=== PATIENT | female | born 1995 | race Caucasian/White ===

== ENCOUNTER 2016-03-19 12:37 | Emergency (ER) | payer OTHER ==
[2016-03-19 12:47] VITALS: TEMP 98.3; BMI 30.1
[2016-03-19] MEDS ORDERED: SODIUM CHLORIDE 1,000 ML IV ONE (13:08)
[2016-03-19] MEDS ORDERED: diazePAM CARPU-JECT 10 MG/2 ML DISP.SYRIN IVPUSH ONE (13:09)
[2016-03-19] MEDS ORDERED: METOCLOPRAMIDE HCL INJECTION 10 MG/2 ML VIAL IVPB ONE (13:09)
[2016-03-19] MEDS ORDERED: MECLIZINE HCL 25 MG TABLET (FP) PO ONE (13:10)
--- NOTE | 2016-03-19 13:15 | PDOC ---
History of Present Illness - General History Source: Patient Exam Limitations: No Limitations - History of Present Illness Initial Comments: 03/19/16 13:19 The patient is a 20 year old female, with no significant past medical history, who presents to the emergency department with chest pain, palpitations, shortness of breath, headache, dizziness and nausea while working today. She notes that when her symptoms were onset, her body became numb diffusely, but has since resolved. She describes her headache as a pressure sensation, ranging from mild to moderate, without radiation. She notes that her headache is exacerbated when she lifts her head up and tries to focus her vision. She denies taking control or driving for long distances. The patient denies fever, chills, nausea, vomit, diarrhea and constipation. Denies dysuria, frequency, urgency and hematuria. Allergies: None Past surgical history: None reported Social history: No alcohol, tobacco or drug use reported <Reynaldo Arnett - Last Filed: 03/19/16 15:03> <Deric Daugherty - Last Filed: 03/19/16 16:08> - General Chief Complaint: Palpitations Stated Complaint: CHEST PAIN, RAPID HEARTBEAT,DIZZINESS Time Seen by Provider: 03/19/16 12:58 Past History <Reynaldo Arnett - Last Filed: 03/19/16 15:03> - Surgical History Cholecystectomy: Yes - Psycho/Social/Smoking Cessation Hx Anxiety: No Suicidal Ideation: No Smoking History: Never smoked Have you smoked in the past 12 months: No Hx Alcohol Use: No Drug/Substance Use Hx: No Substance Use Type: None <Deric Daugherty - Last Filed: 03/19/16 16:08> - Past Medical History Allergies/Adverse Reactions: Allergies Allergy/AdvReac Type Severity Reaction Status Date / Time No Known Allergies Allergy Verified 03/19/16 12:42 Home Medications: Ambulatory Orders Meclizine HCl [Antivert -] 50 mg PO TID PRN #20 tablet 03/19/16 Review of Systems - Review of Systems Able to Perform ROS?: Yes <Reynaldo Arnett - Last Filed: 03/19/16 15:03> - Review of Systems Constitutional: No: Chills, Fever HEENTM: No: Recent change in vision, Nose Congestion Respiratory: No: Cough, Shortness of Breath Cardiac (ROS): Yes: Chest Pain, Lightheadedness, Palpitations. No: Edema ABD/GI: No: Nausea, Vomiting Neurological: Yes: Headache. No: Weakness, Ataxia All Other Systems: Reviewed and Negative <Deric Daugherty - Last Filed: 03/19/16 16:08> *Physical Exam - Vital Signs Last Vital Signs Temp Pulse Resp BP Pulse Ox 98.3 F 72 20 136/81 97 03/19/16 12:42 03/19/16 12:42 03/19/16 12:42 03/19/16 12:42 03/19/16 12:42 - Physical Exam Comments: 03/19/16 13:20 GENERAL: The patient is awake, alert, and fully oriented, Mild distress secondary to headache and dizziness. HEAD: Normal with no signs of trauma. EYES: Pupils equal, round and reactive to light, extraocular movements intact, sclera anicteric, conjunctiva clear with no pallor. ENT: Ears normal, nares patent, oropharynx clear without exudates. Moist mucous membranes. NECK: Normal range of motion, supple without lymphadenopathy, JVD, or masses. LUNGS: Breath sounds equal, clear to auscultation bilaterally. No wheeze/ crackles. HEART: Regular rate and rhythm, normal S1 and S2 without murmur or rub. ABDOMEN: Soft/nontender/nondistended. BS wnl. No guarding or rebound. No palpable masses. No hepatosplenomegaly. EXTREMITIES: Normal range of motion, no edema. No clubbing or cyanosis. No cords , erythema, or tenderness. NEUROLOGICAL: Cranial nerves II through XII grossly intact. Normal speech, normal gait. PSYCH: Normal mood, normal affect. SKIN: Warm, Dry, normal turgor, no rashes or lesions noted. <Reynaldo Arnett - Last Filed: 03/19/16 15:03> - Vital Signs Last Vital Signs Temp Pulse Resp BP Pulse Ox 98.3 F 72 20 136/81 97 03/19/16 12:42 03/19/16 12:42 03/19/16 12:42 03/19/16 12:42 03/19/16 12:42 <Deric Daugherty - Last Filed: 03/19/16 16:08> Heart Score/ECG Review #1 ECG reviewed & interpreted by me at: 12:44 General ECG Interpretation: Sinus Rhythm, Normal Rate (69), Normal Intervals ( qtc 430), No acute ischemic changes <Deric Daugherty - Last Filed: 03/19/16 16:08> ED Treatment Course - LABORATORY CBC & Chemistry Diagram: 03/19/16 13:11 03/19/16 13:11 - RADIOLOGY Radiograph Interpretation: 03/19/16 15:[address] Reviewed by: Dr. Karthik Chacko Impression: No evidence of acute intracranial hemorrhage, edema, midline shift, mass effect, or skull fracture. No CT evidence of acute territorial infarction. <Reynaldo Arnett - Last Filed: 03/19/16 15:03> - LABORATORY CBC & Chemistry Diagram: 03/19/16 13:11 03/19/16 13:11 <Deric Daugherty - Last Filed: 03/19/16 16:08> Medical Decision Making - Medical Decision Making 03/19/16 13:11 A portion of this note was documented by scribe services under my direction. I have reviewed the details of the note, within reason, and agree with the documentation with the following case summary and management plan written by me. 20-year-old healthy female presents brought in by sister with acute onset of constellation of symptoms while at work: Lightheadedness/dizziness with palpitations and chest discomfort, full body numbness, and now a persistent frontal headache. No obvious stressors, no risk factors for ACS or PE, denies drug use. No history of recurrent migraines or ever experiencing this set of symptoms. Vital signs normal. EKG is nonischemic and normal rate Exam is normal, including neurological exam 20-year-old female with sudden onset of palpitations/chest pain/lightheadedness , now resolved but followed by headache. Rule out primary [employer] for ACS process, though clinically atypical. Question panic attack//anxiety. Labs, EKG Chest x-ray, CT head IV fluids, Reglan, valium/meclizine for dizziness and would address ? component of anxiety. 03/19/16 16:04 Labs are within normal limits, chest x-ray and CT head showed no acute pathology. Patient's symptoms markedly improved/resolved after above medications, now seated in wheelchair texting on her cell phone, eyes open and remains neurologically intact. Given his better history now of vertiginous type symptoms with head movement, seems more consistent with benign positional vertigo. Will discharge on meclizine with Neurology f/u. Understands return criteria. <Deric Daugherty - Last Filed: 03/19/16 16:08> *DC/Admit/Observation/Transfer - Attestations Scribe Attestion: 03/19/16 13:20 Documentation prepared by Reynaldo Arnett, acting as certified medical dosimetrist for Deric Daugherty MD. <Reynaldo Arnett - Last Filed: 03/19/16 15:03> <Deric Daugherty - Last Filed: 03/19/16 16:08> Diagnosis at time of Disposition: Palpitations Benign paroxysmal positional vertigo Qualifiers: Laterality: unspecified laterality Qualified Code(s): H81.10 - Benign paroxysmal vertigo, unspecified ear - Discharge Dispostion Disposition: HOME Condition at time of disposition: Improved - Prescriptions Prescriptions: Meclizine HCl [Antivert -] 50 mg PO TID PRN #20 tablet PRN Reason: Vertigo - Referrals Referrals: Figueroa Maldonado MD [Primary Care Provider] - Miguel Ángel Turner MD [Staff Physician] - - Patient Instructions Printed Discharge Instructions: DI for Benign Paroxysmal Positional Vertigo Additional Instructions: Activity as tolerated. Stay hydrated. Blood tests, a CAT scan of the head, and a chest x-ray showed no acute abnormalities. Your symptoms are likely due to benign positional vertigo, which is a fluid imbalance in the ear that can cause positional dizziness. Continue your medications as previously prescribed by your physician. Take meclizine as prescribed as needed. You should follow up with your primary doctor and a neurologist as soon as possible regarding today's emergency department visit. Return to the emergency department for any new or concerning symptoms, particularly persistent or worsening dizziness, persistent chest pain or difficulty breathing, severe headache or vomiting or confusion.
[2016-03-19] MEDS ORDERED: METOCLOPRAMIDE HCL INJECTION 10 MG/2 ML VIAL ONE (13:22)
[2016-03-19] MEDS ORDERED: MECLIZINE HCL 25 MG TABLET (FP) ONE (13:22)
[2016-03-19] MEDS ORDERED: diazePAM CARPU-JECT 10 MG/2 ML DISP.SYRIN ONE (13:22)
[2016-03-19 13:26] LABS: BASOPHIL 0.3 % (0-2.0); EOSINOPHIL 3.7 % (0-4.5); MCH 30.7 pg (25.7-33.7); MCHC 34.3 g/dl (32.0-36.0); MEAN CELL VOLUME 89.4 fl (80-96); MEAN PLT VOLUME 8.1 fl (7.5-11.1); NEUTROPHILS 63.2 % (42.8-82.8); PLATELET COUNT 177 K/MM3 (134-434); RDW 13.1 % (11.6-15.6); WHITE BLOOD COUNT 6.6 K/mm3 (4.0-10.0)
[2016-03-19 14:25] LABS: ANION GAP 9 (8-16); BILIRUBIN,TOTAL 0.9 mg/dL (0.2-1.0); CALCIUM 8.7 mg/dL (8.5-10.1); CO2 26 mmol/L (21-32); CREATININE 0.7 mg/dL (0.55-1.02); GLUCOSE,RANDOM 86 mg/dL (74-106); MAGNESIUM 2.3 mg/dL (1.8-2.4); SGPT/ALT 28 U/L (12-78); TOT PROT 7.4 g/dl (6.4-8.2)
[2016-03-19 14:30] LABS: ALK PHOS 98 U/L (45-117); SGOT/AST 14 U/L (15-37); TROPONIN I < 0.02 ng/ml (0.00-0.05)
[2016-03-19 16:43] VITALS: BP 117/64; PULSE 65
--- NOTE | 2016-03-20 23:25 | EKG ---
Test Reason : Blood Pressure : / mmHG Vent. Rate : 069 BPM Atrial Rate : 069 BPM P-R Int : 114 ms QRS Dur : 068 ms QT Int : 402 ms P-R-T Axes : 058 072 037 degrees QTc Int : 430 ms NORMAL SINUS RHYTHM NORMAL ECG NO PREVIOUS ECGS AVAILABLE Confirmed by MATTHEW GRAF MD ([id number]) on 03/20/2016 11:25:37 PM Referred By: Confirmed By:MATTHEW GRAF MD
== END 2016-03-19 16:43 | disposition home or self-care (01) ==
LOC: JER 12:37
PROC: 3E0337Z Introduction of Electrolytic and Water Balance Substance into Peripheral Vein, Percutaneous Approach (ICD-10-PCS; principal; 2016-03-19)
PROC: 3E033GC Introduction of Other Therapeutic Substance into Peripheral Vein, Percutaneous Approach (ICD-10-PCS; 2016-03-19)
PROC: 3E033NZ Introduction of Analgesics, Hypnotics, Sedatives into Peripheral Vein, Percutaneous Approach (ICD-10-PCS; 2016-03-19)
DX: R00.2 Palpitations (principal); H81.10 Benign paroxysmal vertigo, unspecified ear
CPT/HCPCS: 36415; 70450-TC; 71020-TC; 80053; 82550; 83735; 84484; 84703; 85025; 93005; 93010; 96361; 96374; 96375; 99285-25